=== PATIENT | male | born 1975 | race Caucasian/White ===

== ENCOUNTER 2025-07-06 01:20 | Day surgery (SDC) | payer OTHER, SELFPAY ==
--- OUTSIDE RECORDS SUMMARY | 2024-01-12 07:41 | XMS_ITS ---
Author Organization [facility] Address [address] [place] [address] Care Team Providers Care Soils Analyst Name Role Phone Annie Arteaga Primary Care Provider [phone] Arnav DAVID, Vazquez Elizabeth Encounters Encounter Location Date Provider Diagnosis [facility] [id number] [facility] [address] [place], [place] [id number] 01/12/2024 Vazquez José MD PLAN OF TREATMENT No Information
--- OUTSIDE RECORDS SUMMARY | 2024-06-03 02:45 | XMS_ITS ---
Author Organization [facility] Address [address] [place] [address] Care Team Providers Care Patient Scheduling Manager Name Role Phone Annie Arteaga Primary Care Provider ALLERGIES No Known Allergies RESULTS Component Value Reference Range Notes Hemoglobin A1c (S/O) ([id number] ) Reviewed date:06/06/2024 11:17:30 AM Interpretation: Performing Lab:[facility] [id number], Phone - [phone], Director - [facility] Notes/Report: Hemoglobin A1c 5.3 4.8-5.6 % . Prediabetes: 5.7 - 6.4 Diabetes: >6.4 Glycemic control for adults with diabetes: <7.0 TSH ([id number]) Reviewed date:06/06/2024 11:18:08 AM Interpretation: Performing Lab:[facility], [address] [place] [id number], Phone - [phone], Director - [facility] Notes/Report: TSH 1.970 0.450-4.500 uIU/mL Basic Metabolic Profile (8) (BMP)([id number]) Reviewed date:06/06/2024 11:18:16 AM Interpretation: Performing Lab:[facility], [address] [place] [id number], Phone - [phone], Director - [facility] Notes/Report: Glucose 101 70-99 mg/dL BUN 15 6-24 mg/dL Creatinine 1.06 0.76-1.27 mg/dL eGFR 85 >59 mL/min/1.73 BUN/Creatinine Ratio 14 9-20 Sodium 137 134-144 mmol/L Potassium 3.9 3.5-5.2 mmol/L Chloride 103 96-106 mmol/L Carbon Dioxide, Total 21 20-29 mmol/L Calcium 8.7 8.7-10.2 mg/dL CBC, Platelet; No Differenti al ([id number]) Reviewed date:06/06/2024 11:18:23 AM Interpretation: Performing Lab:[facility] [address] [id number], Phone - [phone], Director - [facility] Notes/Report: WBC 8.1 3.4-10.8 x10E3/uL RBC 4.99 4.14-5.80 x10E6/uL Hemoglobin 14.7 13.0-17.7 g/dL Hematocrit 46.6 37.5-51.0 % MCV 93 79-97 fL MCH 29.5 26.6-33.0 pg MCHC 31.5 31.5-35.7 g/dL RDW 13.3 11.6-15.4 % Platelets 263 150-450 x10E3/uL [facility] Lipid Panel w/ Chol/HDL Rati o ([id number]) Reviewed date:06/06/2024 11:17:43 AM Interpretation: Performing Lab:[facility] [address] [id number], Phone - [phone], Director - [facility] Notes/Report: Cholesterol, Total 168 100-199 mg/dL Triglycerides 73 0-149 mg/dL HDL Cholesterol 56 >39 mg/dL VLDL Cholesterol Lopez 14 5-40 mg/dL LDL Chol Calc ([facility]) 98 0-99 mg/dL LDL Calc Comment: T. Chol/HDL Ratio 3.0 0.0-5.0 ratio T. Chol/HDL Ratio Men Women 1/2 Avg.Risk 3.4 3.3 Avg.Risk 5.0 4.4 2X Avg.Risk 9.6 7.1 3X Avg.Risk 23.4 11.0 PSA Prostate-Specific Antige n, Serum(515345) Reviewed date:06/06/2024 11:17:22 AM Interpretation: Performing Lab:[facility] [address] [id number], Phone - [phone], Director - Richard Notes/Report: Prostate Specific Ag 0.8 0.0-4.0 ng/mL Al[facility]a ECLIA methodology. . According to the [employer], Serum PSA should decrease and remain at undetectable levels after radical prostatectomy. The AUA defines biochemical recurrence as an initial PSA value 0.2 ng/mL or greater followed by a subsequent confirmatory PSA value 0.2 ng/mL or greater. Values obtained with different assay methods or kits cannot be used interchangeably. Results cannot be interpreted as absolute evidence of the presence or absence of malignant disease. REASON FOR VISIT CPE, high blood pressure MEDICATIONS Medication SIG (Take, Route, Frequency, Duration) Notes Start Date End Date Status Lisinopril-hydroCHLOROthia zide 20-25 MG 1 tablet in the morning Orally Once a day for 30 days 06/03/2024 Active IMMUNIZATIONS Vaccine Route Administration Date Status Comme nts Boostrix- Tdap IM Intramuscular 06/03/2024 Administered SOCIAL HISTORY Tobacco Use: Social History Observation Description Date Details (start date - stop date) Never Smoker NA - NA Sex Assigned At : Social History Observation Description Sex Assigned At Unknown Tobacco Use/Smoking Question Answer Notes Are you a nonuser Alcohol Questionnaire Question Answer Notes Did you have a drink contain ing alcohol in the past year? Yes How often did you have a dri nk containing alcohol in the past year? 2 to 4 times a month (2 points) How many drinks did you have on a typical day when you were drinking in the past year? 3 or 4 drinks (1 point) How often did you have 6 or more drinks on one occasion in the past year? Less than monthly (1 point) Points 4 Interpretation Positive Section Notes: chewed about 20 years, quit 2020 PROBLEMS Problem Type ICD Code Onset Dates Problem Status W/U Status Risk SNOMED Code Notes Problem Hypertension (I10) Active confirmed Hypertension (93897787) VITAL SIGNS Temperature 97.7 degrees Fahrenheit 06/03/20 24 Heart Rate 70 /min 06/03/2024 Oximetry 99 % 06/03/2024 Blood pressure systolic 164 mm Hg 06/03/20 24 Blood pressure diastolic 108 mm Hg 024 Respiratory Rate 14 /min 06/03/2024 Weight 241.8 lbs 06/03/2024 Height 70 in 06/03/2024 BMI 34.69 06/03/2024 Weight-kg 109.68 kg 06/03/2024 BP initially 183/106 Encounters Encounter Location Date Provider Diagnosis [facility] [address] [place] [address] 06/03/2024 Annie Arteaga Encounter for genera l adult medical examination with abnormal findings Z00.01 ; Uncontrolled hypertension I10 ; Screening for cardiovascular condition Z13.6 ; Diabetes mellitus screening Z13.1 ; Prostate cancer screening Z12.5 ; Screen for colon cancer Z12.11 ; BMI 34.0-34.9,adult Z68.34 and Encounter for immunization Z23 ASSESSMENTS Encounter Date Diagnosis Assessment Notes Treatment Notes Treatment Clinical Notes Section Notes 06/03/2024 Encounter for general adult medical examination with abnormal findings (ICD-10 - Z00.01) Labs: never before, agreeable to complete today as ordered. CRC Screening: Agreeable to Cologuard but not colonoscopy. Testing ordered. Prostate Screening: PSA ordered with labs. Encouraged pt to schedule with dentist as he does not have one, as well as reported hx of chewing tobacco use x20 years. Vaccines: TDaP discussed and administered. Declines annual flu vax. Pt will consider Shingrix another day. Encouraged daily exercise, nutritious food intake, weight loss efforts. Pt reports his states he snores but only when he's extremely tired (typically summer months when he works 16-18 hour shifts daily). Consider sleep study discussion at NOV. Will call with results when rec'd. 06/03/2024 Uncontrolled hypertension (ICD-10 - I10) BP remains elevated with multiple rechecks in office which is consistent with pt's home BP readings reported. Educated on risks of uncontrolled BP, indications for medication and nonpharm tx. Encouraged DASH/heart healthy diet, daily exercise once BP is controlled, weight loss efforts, avoid tobacco. Labs discussed, ordered, drawn - will call pt with results as rec'd. Lisinopril-hctz discussed w/pt, he is agreeable to meds, dispensed. Continue to monitor BP BID, bring home measurements to F/U 2 wks. Scheduled. 06/03/2024 Screening for cardiovascular condition (ICD-10 - Z13.6) 06/03/2024 Diabetes mellitus screening (ICD-10 - Z13.1) 06/03/2024 Prostate cancer screening (ICD-10 - Z12.5) 06/03/2024 Screen for colon cancer (ICD-10 - Z12.11) 06/03/2024 BMI 34.0-34.9,adult (ICD-10 - Z68.34) Encouraged daily exercise, nutritious food intake, weight loss efforts. Pt reports his states he snores but only when he's extremely tired (typically summer months when he works 16-18 hour shifts daily). Consider sleep study discussion at JUN. 06/03/2024 Encounter for immunization (ICD-10 - Z23) 06/03/2024 Other PLAN OF TREATMENT Medication Medication Name Sig Start Date Stop Date Notes Lisinopril-hydroCHLOROthiazi de 20-25 MG 1 tablet in the morning Orally Once a day for 30 days 06/03/2024 Next Appt Details Follow Up: 1 Year, Reason: C PE Procedure Notes * Category Sub-Category Detail Notes Venipuncture Venipuncture: Procedure Explained, verbal consent obtained, Pt Position Sitting, Standard Precautions Used, Location, RT AC Space, 23 g butterfly, # of Attempts 1, Successful, Pressure and Clean Bandage Applied, No Redness/Swelling at Site, Pt Tolerated Well. Collected 1 LAV and 1 SST. Biological Science Aide: Zechariah MENDEZ Progress Notes * Marcel PIZARRODOB:1975 (49 yo M)Acc No.[id number]:06/03/2024 Patient: Marcel PIZARRO Provider: Annie Arteaga APRN :1975 Age:49 Y Sex:Male Date:06/03/2024 Address:[address] [place] [address] Subjective: * Chief Complaints: * CPEHigh blood pressure * HPI: Depression/Anxiety Screening: PHQ-9 (If PHQ-2 positive) Little interest or pleasure in doing things Not at all Feeling down, depressed, or hopeless Not at all Trouble falling or staying asleep, or sleeping too much Not at all Feeling tired or having little energy Not at all Poor appetite or overeating Not at all Feeling bad about yourself or that you are a failure, or have let yourself or your family down Not at all Trouble concentrating on things, such as reading the newspaper or watching television Not at all Moving or speaking so slowly that other people could have noticed; or the opposite, being so fidgety or restless that you have been moving around a lot more than usual Not at all Thoughts that you would be better off or of hurting yourself in some way Not at all Total Score 0 Depression Screening: DILAN-7 (2018 Edition) Feeling nervous, anxious, or on edge Several days Not being able to stop or control worrying Not at all Worrying too much about different things Not at all Trouble relaxing Nearly every day Being so restless that it is hard to sit still Not at all Becoming easily annoyed or irritable Not at all Feeling afraid as if something awful might happen Several days Total DILAN-7 Score 5 Interpretation of Total (5 to 9) Mild *: Pt presents to establish and for AWV. N o historical documentation found in [employer] or [employer]. D oing well overall. V accines: COVID x2 vaccines, last tdap 2003 with injury. L ast labs: only lead level with work physical in August 2023. P CP: none, last medical visit was 2001. N eeds: B P at home 150s/90s typically, never as high as today. T akes PFT every year, completed at [facility] on [place]. * ROS: General/Constitutional: General Denies:, chills, fatigue, fever. Eyes Denies:, blurred vision. ENT DENIES: , hearing decreased, ear(s) pain, nose congestion/drainage. Cardiovascular DENIES: , irregular heartbeat, palpitations, chest pain or tightness. Respiratory DENIES: , cough, wheezing, shortness of breath. Breast DENIES: , breast lump, breast pain. Gastrointestinal DENIES: , abdominal pain, constipation, diarrhea, nausea, vomiting. Genitourinary DENIES: , dysuria, polyuria. Skin DENIES: , itching, rash, concerning/changing lesions. Musculoskeletal DENIES: , muscle aches, back pain. Peripheral Vascular DENIES: , claudication, varicose veins. Neurologic DENIES: , dizziness, headache, weakness. Psychiatric DENIES:, anxiety, depressed mood, sleep problems, substance abuse, suicidal thoughts. Endocrine DENIES: , cold intolerance, heat intolerance, polydipsia. Hematology DENIES: , bleeding prolonged, bruising easily, glands swollen. * Medical History: * Surgical History: Work related accident smashed left hand codie, has had 4 surgeries to repair 10/1995 * Hospitalization/Major Diagno stic Procedure: Hospitalized as a child at age of 3 in [facility] for pneumonia * Family History: Father: alive, colon polyps, bowel resection, diagnosed with Diabetes. Mother: alive, congestive heart failure, diagnosed with Hypertension, Hyperlipidemia. Daughter(s): alive. Sister 1: alive. 1 sister(s) - healthy. 1 son(s) , 1 daughter(s) - healthy. . DAUGHTER, 20 - PRO - LIVES AT [employer], STUDYING [employer]. SON, 16 - [place], HIGH SCHOOL STUDENT. 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 Tobacco Use: Tobacco Use/Smoking Are you a nonuser Habits (drugs/alcohol/caffeine): Alcohol Questionnaire Did you have a drink containing alcohol in the past year? Yes How often did you have a drink containing alcohol in the past year? 2 to 4 times a month (2 points) How many drinks did you have on a typical day when you were drinking in the past year? 3 or 4 drinks (1 point) How often did you have 6 or more drinks on one occasion in the past year? Less than monthly (1 point) Points 4 Interpretation Positive Miscellaneous: Caffeine: yes, frequency: Coffee in the winter, tea in the summer, 2/day, coffee. Alcohol: no. Seat Belt Use: always. Smoking: no. Recreational drug use: yes, Past use: marijuna gummies at times 1-2. Living with: spouse, son, daughter away at school. Marital status: . 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 Pets: 1 dog, daughter also has 1 dog. chewed about 20 years, quit 2020. * Medications: None * Allergies: N.K.A.no[Allergies Verified] Objective: * Vitals: Temp:97.7F, HR:70, Oxygen sat:99%, BP:164/108mm Hg, RR:14/min, Wt:241.8lbs, Ht:70in, BMI:34.69, Wt-k.68 kg BP initially 183/106. * Examination: General Examination *: GENERAL APPEARANCE: OBESE, alert and oriented, no acute distress, pleasant, well nourished. HEAD: atraumatic, normocephalic. EYES: extraocular movements intact, conjunctiva clear, sclera non-icteric. EARS: auditory canal clear, light reflex present, tympanic membrane intact. SINUSES: non-tender. NOSE: nares patent, no lesions . ORAL CAVITY: no lesions, mucosa moist, POOR dentition. THROAT: no erythema, no exudate, pharynx normal, tonsils normal, uvula midline . NECK/THYROID: neck supple, no thyromegaly. LYMPH NODES: no anterior cervical adenopathy. HEART: S1/S2 normal, regular rate and rhythm, no murmurs, no rubs, no gallops. LUNGS: clear to auscultation, good air movement, no respiratory distress. CHEST: anteroposterior (AP) diameter normal, no deformity. ABDOMEN: soft, non-tender, normal bowel sounds, non-distended. BACK: non-tender, full range of motion. SKIN: Warm and dry, good turgor, no rashes, no suspicious lesions. EXTREMITIES: no edema, capillary refill normal. PERIPHERAL PULSES: 2+ throughout. NEUROLOGIC: alert, cooperative, moving all extremities spontaneously, non-focal. MUSCULOSKELETAL: no swelling or deformity. PODIATRIC: no cyanosis/clubbing/edema. PSYCH: affect normal, cognitive function intact, mood normal, *SPEECH/LANGUAGE, clear. Assessment: * Assessment: 1. Encounter for general adult medical examination with abnormal findings - Z00.01 (Primary) 2. Uncontrolled hypertension - I10 3. Screening for cardiovascular condition - Z13.6 4. Diabetes mellitus screening - Z13.1 5. Prostate cancer screening - Z12.5 6. Screen for colon cancer - Z12.11 7. BMI 34.0-34.9,adult - Z68.34 8. Encounter for immunization - Z23 Plan: * Treatment: Value Reference Range TSH 1.970 0.450-4.500 - uIU/mL * This lab was reviewed by Chance on 06/06/2024 at 11:18 AM MDT ?LAB: Basic Metabolic Profile (8) ([facility])([id number])* Value Reference Range Glucose, Serum 101 H 70-99 - mg/dL * BUN 15 6-24 - mg/dL * Creatinine, Serum 1.06 0.76-1.27 - mg/dL * BUN/Creatinine Ratio 14 9-20 - * Sodium, Serum 137 134-144 - mmol/L * Potassium, Serum 3.9 3.5-5.2 - mmol/L * Chloride, Serum 103 96-106 - mmol/L * Carbon Dioxide, Total 21 20-29 - mmol/L * Calcium, Serum 8.7 8.7-10.2 - mg/dL * eGFR 85 >59 - mL/min/1.73 * This lab was reviewed by Chance on 06/06/2024 at 11:18 AM MDT ?LAB: CBC, Platelet; No Differential ([id number])* Value Reference Range Hematocrit 46.6 37.5-51.0 - % * Hemoglobin 14.7 13.0-17.7 - g/dL * MCH 29.5 26.6-33.0 - pg * MCHC 31.5 31.5-35.7 - g/dL * MCV 93 79-97 - fL * Platelets 263 150-450 - x10E3/uL * RBC 4.99 4.14-5.80 - x10E6/uL * RDW 13.3 11.6-15.4 - % * WBC 8.1 3.4-10.8 - x10E3/uL * This lab was reviewed by Chance on 06/06/2024 at 11:18 AM MDT Clinical Notes: Labs: never before, agreeable to complete today as ordered. CRC Screening: Agreeable to Cologuard but not colonoscopy. Testing ordered. Prostate Screening: PSA ordered with labs. Encouraged pt to schedule with dentist as he does not have one, as well as reported hx of chewing tobacco use x20 years. Vaccines: TDaP discussed and administered. Declines annual flu vax. Pt will consider Shingrix another day. Encouraged daily exercise, nutritious food intake, weight loss efforts. Pt reports his states he snores but only when he's extremely tired (typically summer months when he works 16-18 hour shifts daily). Consider sleep study discussion at NOV. Will call with results when rec'd.?2.??Uncontrolled hypertension?? Start Lisinopril-hydroCHLOROthiazide Tablet, 20-25 MG, 1 tablet in the morning, Orally, Once a day [high blood pressure], 30 days, 30 Tablet, Refills 0.? Clinical Notes: BP remains elevated with multiple rechecks in office which is consistent with pt's home BP readings reported. Educated on risks of uncontrolled BP, indications for medication and nonpharm tx. Encouraged DASH/heart healthy diet, daily exercise once BP is controlled, weight loss efforts, avoid tobacco. Labs discussed, ordered, drawn - will call pt with results as rec'd. Lisinopril-hctz discussed w/pt, he is agreeable to meds, dispensed. Continue to monitor BP BID, bring home measurements to F/U 2 wks. Scheduled.?3.??Screening for cardiovascular condition?LAB: Lipid Panel w/ Chol/HDL Ratio ([id number])* Value Reference Range Cholesterol, Total 168 100-199 - mg/dL * Triglycerides 73 0-149 - mg/dL * HDL Cholesterol 56 >39 - mg/dL * T. Chol/HDL Ratio 3.0 0.0-5.0 - ratio * VLDL Cholesterol Lopez 14 5-40 - mg/dL * LDL Chol Calc (NIH) 98 0-99 - mg/dL * This lab was reviewed by Chance on 06/06/2024 at 11:17 AM MDT 4.??Diabetes mellitus screening?LAB: Hemoglobin A1c (S/O) (920532)* Value Reference Range Hemoglobin A1c 5.3 4.8-5.6 - % * This lab was reviewed by Chance on 06/06/2024 at 11:17 AM MDT 5.??Prostate cancer screening?LAB: PSA Prostate-Specific Antigen, Serum(154332)* Value Reference Range Prostate Specific Ag (PSA), Serum 0.8 0.0-4. 0 - ng/mL * This lab was reviewed by Chance on 06/06/2024 at 11:17 AM MDT 6.??Screen for colon cancer?LAB: Cologuard7.??BMI 34.0-34.9,adult?? Clinical Notes: Encouraged daily exercise, nutritious food intake, weight loss efforts. Pt reports his states he snores but only when he's extremely tired (typically summer months when he works 16-18 hour shifts daily). Consider sleep study discussion at NOV.? * Procedures: Venipuncture: Venipuncture: Procedure Explained, v erbal consentobtained, P t PositionSitting, S tandard Precautions Used, Location, R T AC Space, 2 3 g butterfly, # of Attempts 1, S uccessful, P ressure andClean Bandage Applied, N oRedness/Swelling at Site, P t ToleratedWell. Collected 1 LAV and 1 SST. Biological Science Aide: Zechariah MENDEZ. * Immunizations: Boostrix- Tdap : .50 mL (Dose No:1) (Route: Intramuscular) given by Shavon Agarwal on Right Deltoid (Encounter for immunization) * Procedure Codes: 1036F Nicotine [id number] BMI [id number] Depression Umfndaaep1747B INGA/ARB Rvwyfvl20522 Anxiety CsbjnevaqVRI32 BMI COUNSELING FOR >/=30.749463 Tdap: BOOSTRIX (>/=10yrs)(1 dose) * Follow Up: 1 Year (Reason: CPE) * Billing Information: * Visit Code: 15061 Preventive Care New Pt. Age 40-64. * Procedure Codes: 1036F Nicotine Screening - Non-user (Current). 3008F BMI Screening. 3351F Depression Screening - NEGATIVE Screening (PHQ9 <10). 4010F INGA/ARB Therapy. 16602 Anxiety Screening. BMI30 BMI COUNSELING FOR >/=30.0. 78781 Tdap: BOOSTRIX (>/=10yrs)(1 dose). * Sign off status: Completed true * Provider: Annie Arteaga APRN Date: 06/03/2024 History and Physical Notes * HPI (History of Present Illness) Category Sub-Category Detail Notes Category Not es Depression/Anxiety Screening PHQ-9 (If PHQ-2 positive) Little interest or pleasure in doing things: Not at all Feeling down, depressed, or hopeless: No t at all Trouble falling or staying asleep, or sl eeping too much: Not at all Feeling tired or having little energy: N ot at all Poor appetite or overeating: Not at all Feeling bad about yourself o r that you are a failure, or have let yourself or your family down: Not at all Trouble concentrating on thi ngs, such as reading the newspaper or watching television: Not at all Moving or speaking so slowly that other people could have noticed; or the opposite, being so fidgety or restless that you have been moving around a lot more than usual: Not at all Thoughts that you would be b mary off or of hurting yourself in some way: Not at all Total Score: 0 Depression Screening DILAN-7 (2018 Edition) Feelin g nervous, anxious, or on edge: Several days Not being able to stop or control worryi ng: Not at all Worrying too much about different things : Not at all Trouble relaxing: Nearly every day Being so restless that it is hard to sit still: Not at all Becoming easily annoyed or irritable: No t at all Feeling afraid as if something awful rachel ht happen: Several days Total DILAN-7 Score: 5 Interpretation of Total: (5 to 9) Mild Examination Category Sub-Category Detail Notes Category Not es General Examination * GENERAL APPEARANCE: OBESE, alert and oriented, no acute distress, pleasant, well nourished HEAD: atraumatic, normocep halic EYES: extraocular movement s intact, conjunctiva clear, sclera non-icteric EARS: auditory canal clear , light reflex present, tympanic membrane intact NOSE: nares patent, no les ions ORAL CAVITY: no lesions, mucosa m oist, POOR dentition THROAT: no erythema, no exud ate, pharynx normal, tonsils normal, uvula midline NECK/THYROID: neck supple, no thyr omegaly LYMPH NODES: no anterior cervical adenopathy SKIN: Warm and dry, good t urgor, no rashes, no suspicious lesions HEART: S1/S2 normal, regula r rate and rhythm, no murmurs, no rubs, no gallops LUNGS: clear to auscultatio n, good air movement, no respiratory distress CHEST: anteroposterior (AP) diameter normal, no deformity BREASTS: ABDOMEN: soft, non-tender, no rmal bowel sounds, non-distended BACK: non-tender, full ran ge of motion MUSCULOSKELETAL: no swelling or defor mity EXTREMITIES: no edema, capillary refill normal PERIPHERAL PULSES: 2+ throughout NEUROLOGIC: alert, cooperative, moving all extremities spontaneously, non-focal PODIATRIC: no cyanosis/clubbing /edema PSYCH: affect normal, cogni tive function intact, mood normal, *SPEECH/LANGUAGE, clear SINUSES: non-tender
--- OUTSIDE RECORDS SUMMARY | 2024-06-19 09:30 | XMS_ITS ---
Author Organization [facility] [employer] Address [address] [place] [address] Care Team Providers Care Boat Dispatcher Name Role Phone Annie Arteaga Primary Care Provider [phone] REASON FOR VISIT F/U HTN MEDICATIONS Medication SIG (Take, Route, Frequency, Duration) Notes Start Date End Date Status Lisinopril-hydroCHLOROthia zide 20-25 MG 1 tablet in the morning Orally Once a day for 30 days 06/03/2024 Active Encounters Encounter Location Date Provider Diagnosis [address] [address] 06/19/2024 Annie Arteaga PLAN OF TREATMENT No Information Progress Notes * Marcel PIZARRODOB:1975 (49 yo M)Acc No.[id number]:06/19/2024 Patient: Marcel PIZARRO Provider: Annie Arteaga APRN :1975 Age:49 Y Sex:Male Date:06/19/2024 Address:[address] [place], [place] [id number] Subjective: * Chief Complaints: * 1. F/U HTN. * Medical History: * Medications: Taking Lisinopril-hydroCHLOROthiazide 20-25 MG Tablet 1 tablet in the morning Orally Once a day [high blood pressure] Objective: Assessment: Plan: * Treatment: * Billing Information: * Visit Code: * Procedure Codes: * Sign off status: Completed Addendum: * true * Provider: Annie Arteaga APRN Date: 06/19/2024
--- OUTSIDE RECORDS SUMMARY | 2025-07-06 01:25 | XMS_ITS | Patient Health Record ---
Author Organization [facility] Address [address] [place] [address] Care Team Providers Care Allied Health Teacher Name Role Phone Annie Arteaga Primary Care Provider [phone] ALLERGIES No Known Allergies RESULTS Component Value Reference Range Notes Cologuard (Not yet reviewed by provider) Interpretation: Performing Lab: Notes/Report: Cologuard Result Cancelled - Order Not Applica ble REASON FOR REFERRAL No Information MEDICATIONS Medication SIG (Take, Route, Frequency, Duration) [...] Notes Problem Hypertension (I10) Active confirmed Hypertension ([id number]) PLAN OF TREATMENT Pending Test Test Name Order Date oguard 06/04/2025 Insurance Providers Payer Name Payer Address Payer Phone Subscriber Number Group Number Insured Name Patient Relationship to Insured Coverage Start Date Coverage End Date [employer] [facility] [address] [address] [place] [phone] [id number] Marcel Stewart Self - patient is the insured MEDICAL (GENERAL) HISTORY Medical History History ICD Code Hypertension I10 Surgical History Surgery Date(Month/Year) Work related accident trish mcnamara left hand codie, has had 4 surgeries to repair 10/1995 Hospitalization History Reason Date(Month/Year) Hospitalized as a child at age of 3 in [facility] for pneumonia
[2025-07-06 09:13] VITALS: BP 145/100; PULSE 90; RESP 18; TEMP 36.1; O2SAT 97; BMI 35.2
[2025-07-06] MEDS: LACTATED RINGERS 1,000 ML 150 ML IV CONT (09:20)
--- NOTE | 2025-07-06 09:38 | P.PNAN_ITS ---
Anes - Initial Pre Proc Eval Procedure: Operation Date: 07/06/25 14:30 Proposed Procedures p Screening Colonoscopy - Dereck Díaz MD Date/Time: 07/06/25 09:38 Surgeon: Dereck Díaz MD Pre Op Diagnosis: Encounter for screening for malignant neoplasm of Patient Data Age: 50 Gender: M Height: 1.78 m Weight: 111.5 kg Last Vital Signs Temp 36.1 C L 07/06/25 09:13 Pulse 90 07/06/25 09:13 Resp 18 07/06/25 09:13 BP 145/100 H 07/06/25 09:13 Pulse Ox 97 07/06/25 09:13 O2 Del Method Room Air 07/06/25 09:13 Allergies Allergy/AdvReac Type Severity Reaction Status Date / Time No Known Allergies Allergy Verified 07/06/25 09:12 Home Medications ?Medication ?Instructions ?Recorded ?Confirmed ?Type lisinopril 20 1 tablet PO DAILY 06/16/25 1 09/06/24 History mg-hydrochlorothiazide 25 mg tablet Patient hx anesthesia problems: none Family hx anesthesia problems: none Results Review: All pre-operative results and documents have been reviewed as part of the pre- operative evaluation. Anes - Eval Final PreProcedure Day of Procedure 07/06/25 09:38 Patient weight: obese Heart: regular rate and rhythm Lungs: clear to auscultation Airway: Mallampati scale class II Neurological: alert and oriented Last oral intake: >/= 8 hours ASA classification: III Emergent: no Anesthetic plan: proceed Anesthesia type and monitoring: general GIVS and standard monitoring Results Review: All pre-operative results and documents have been reviewed as part of the pre- operative evaluation. Informed Consent: The patient's anesthetic plan and its attendant risks and benefits were discussed with the patient/family/POA. Questions were solicited and answers provided to the satisfaction of the patient/family/POA.
--- NOTE | 2025-07-06 10:10 | P.HP_ITS ---
History of Present Illness History of Present Illness Consent: Risks, benefits, and alternatives have been discussed and questions answered. Patient agrees to proceed with procedure. Chief complaint: Encounter for screening for malignant neoplasm of Narrative: Marcel Stewart is a 50 year old male here for first screening colonoscopy Review of Systems Review of Systems: All systems reviewed & are unremarkable except as noted in HPI and below PMFSH Past Medical History Medical History (Updated 07/06/25 @ 10:11 by Dereck Díaz MD) Colon cancer screening Meds Home Medications and Allergies Home Medications ?Medication ?Instructions ?Recorded ?Confirmed ?Type lisinopril 20 1 tablet PO DAILY 06/16/25 1 09/06/24 History mg-hydrochlorothiazide 25 mg tablet Allergies Allergy/AdvReac Type Severity Reaction Status Date / Time No Known Allergies Allergy Verified 07/06/25 09:12 Vital Signs Vital Signs - 24 hr 07/06/25 09:13 Temperature 97 F L Pulse Rate 90 Respiratory Rate 18 Blood Pressure 145/100 H Pulse Oximetry 97 Oxygen Delivery Room Air Exam Const: General: comfortable and no acute distress HENMT: Face/Nose/Sinus: Normal nares present Eyes: General: appearance normal, both eyes and all related structures Resp: Auscultation: clear to auscultation bilaterally Cardio: Rate: regular rate Rhythm: regular rhythm GI: Inspection: non-distended GI Palp: Yes Soft to palpation Skin: General skin exam: normal color Extrem: General: normal to inspection Psych: Mental Status: mental status grossly normal Assessment and Plan Assessment and plan (1) Colon cancer screening: Code(s): Z12.11 - Encounter for screening for malignant neoplasm of colon Status: Acute Assessment and Plan: colonoscopy
--- NOTE | 2025-07-06 10:26 | S_PTH ---
PATIENT: Marcel Stewart LOC: [facility]#:[id number] AGE/SX: 50/M ROOM: RE07/06/[address]: Dereck Díaz MD : 1975 BED: DIS: 07/06/2025 SPEC #: [id number] RECD: 07/06/25 11:48 STATUS: RYAN RECaitlyn #: [id number] FLYNN: 07/06/25 10:[address]: Dereck Díaz DEPT: [facility] RECD BY: Danielle Malin ENTERED: 07/06/25 11:49 SP TYPE: Surgical OTHR DR: Annie Arteaga, JUNIOR AUTOMATION ENGINEER Tissues: A - Colon Polypectomy B - Colon Polypectomy Procedures: Hematoxylin and Eosin Stain Gross and Microscopic Level 4
[2025-07-06 10:30] VITALS: BP 99/68; PULSE 72; RESP 18; O2SAT 96
[2025-07-06 10:40] VITALS: BP 93/68; PULSE 71; RESP 16; O2SAT 96
[2025-07-06 10:50] VITALS: BP 117/79; PULSE 74; RESP 17; O2SAT 98
== END 2025-07-06 11:03 | disposition home or self-care (01) ==
PROVIDERS: PCP Nurse Practitioner Family; Referring Provider Nurse Practitioner Family; Visit Provider Internal Medicine Gastroenterology
PROC: 0DJD8ZZ Inspection of Lower Intestinal Tract, Via Natural or Artificial Opening Endoscopic (ICD-10-PCS; CPT 45378; principal; 2025-07-06 14:30)
DX: Z12.11 Encounter for screening for malignant neoplasm of colon (principal); D12.4 Benign neoplasm of descending colon; K63.5 Polyp of colon; K57.30 Diverticulosis of large intestine without perforation or abscess without bleeding; K64.8 Other hemorrhoids; E66.9 Obesity, unspecified; Z68.35 Body mass index [BMI] 35.0-35.9, adult
CPT/HCPCS: 45380; 45385; 88305; J2003; J2704; J7120